=== PATIENT | male | born 1980 | race Caucasian/White ===

== ENCOUNTER → 2017-08-26 | Outpatient (REF) | LOC: AUD 08:45 | PROVIDERS: ATTEND Internal Medicine | DX: Z01.10 Encounter for examination of ears and hearing without abnormal findings (principal) | CPT/HCPCS: 92552 ==

== ENCOUNTER → 2017-12-10 | Outpatient (CLI) | payer BC ==
[2017-12-10 09:01] LABS: PLATELET COUNT, AUTOMATED 233 K/uL (150-450)
[2017-12-10 10:00] LABS: LDL CHOLESTEROL 86 mg/dl
== END ==
LOC: LAB 08:41
PROVIDERS: ATTEND Nurse Practitioner Family
DX: E78.5 Hyperlipidemia, unspecified (principal); R53.83 Other fatigue
CPT/HCPCS: 36415; 82040; 82247; 82306; 82310; 82374; 82435; 82465; 82565; 82607; 82947; 83718; 84075; 84132; 84155; 84295; 84402; 84443; 84450; 84460; 84478; 84520; 85025

== ENCOUNTER → 2017-12-15 | Outpatient (REF) | payer BC | LOC: ZZSENDIN 09:29 | PROVIDERS: ATTEND Nurse Practitioner Family | DX: R53.83 Other fatigue (principal) | CPT/HCPCS: 83540; 83550 ==

== ENCOUNTER → 2018-09-14 | Outpatient (REF) | LOC: AUD 10:25 | PROVIDERS: ATTEND Internal Medicine | DX: Z01.12 Encounter for hearing conservation and treatment (principal) | CPT/HCPCS: 92552 ==